=== PATIENT | female | born 1990 | race Caucasian/White ===

== ENCOUNTER 2016-07-30 11:20 | Emergency (ER) | payer MEDICAID, OTHER ==
[~2016-07-30] VITALS: Ht 157.5 cm; Wt 63.5 kg
[~2016-07-30 11:20] MED LIST: LORTA5 PO
[2016-07-30 11:22] VITALS: BP 123/67; PULSE 68; RESP 12; TEMP 98.4; O2SAT 100
[2016-07-30] MEDS ORDERED: SODIUM CHLORIDE 0.9% FLUSH 5 ML FLUSH IVF PRN (12:00)
[2016-07-30 12:35] LABS: AUTOMATED NEUTROPHIL # 3.7 TH/MM3 (1.8-7.7); BASOPHIL % 0.1 % (0.0-2.0); EOSINOPHIL % 0.4 % (0.0-4.0); HEMO FLAGS DIFF FINAL; LYMPH % 29.5 % (9.0-44.0); LYMPHOCYTE # 1.8 TH/MM3 (1.0-4.8); MEAN CELL VOLUME 83.9 FL (80.0-100.0); MEAN CORPUSCULAR HEMOGLOBIN 28.9 PG (27.0-34.0); MEAN CORPUSCULAR HGB CONC 34.4 % (32.0-36.0); MONO % 9.4 % (0.0-8.0); NEUT % 60.6 % (16.0-70.0); PLATELET COUNT 211 TH/MM3 (150-450); RED BLOOD COUNT 4.41 MIL/MM3 (4.00-5.30); WHITE BLOOD COUNT 6.1 TH/MM3 (4.0-11.0)
[2016-07-30 12:42] LABS: BACTERIA, URINE RARE /hpf; BLOOD, URINE NEG (NEG); GLUCOSE,URINE NEG (NEG); KETONE, URINE NEG (NEG); MUCUS URINE FEW /lpf (OCC); NITRITE,URINE NEG (NEG); SQUAMOUS EPITHELIAL CELL URINE 9 /hpf (0-5); URINE COLOR YELLOW (YELLW/STRAW)
[2016-07-30 12:44] LABS: COMMENT (UR) CULT NOT INDICATED; CULTURE IF INDICATED CULT NOT INDICATED
[2016-07-30 12:49] LABS: BICARBONATE 25.6 MEQ/L (21.0-32.0); POTASSIUM 3.4 MEQ/L (3.5-5.1)
--- NOTE | 2016-07-30 12:50 | PD ---
HPI Chief Complaint: Related Problem Time Seen by Provider: 11:50 Travel History International Travel<30 days: No Contact w/Intl Traveler<30days: No Traveled to known affect area: No History of Present Illness HPI Patient is a 25-year-old female who presents emergency Department due to vaginal discharge and pelvic pain. Patient states that she is approximately 7 weeks . She states the pain is been ongoing for approximately 2 weeks she also has pain in her right lower back. She states the pain comes and goes at its worse at 7 out of 10. She notices the pain more so during the day when she is active. She denies any vaginal bleeding, she denies any fevers, chills, nausea, vomiting, diarrhea, chest pain, shortness of breath. PFSH Past Medical History Medical History: Denies Significant Hx Diminished Hearing: No ?: LMP: 6-7 weeks : 5 Para: 4 Miscarriage: 1 Past Surgical History Surgical History: No Previous Surgery Social History Alcohol Use: No Tobacco Use: No Substance Use: No Allergies-Medications (Allergen,Severity, Reaction): Coded Allergies: No Known Allergies (Unverified , 07/30/16) Reported Meds & Prescriptions Reported Meds & Active Scripts Active No Active Prescriptions or Reported Medications Review of Systems Except as stated in HPI: all other systems reviewed are Neg Cardiovascular: No: Chest Pain or Discomfort Respiratory: No: Shortness of Breath Gastrointestinal: No: Nausea, Vomiting, Abdominal Pain Genitourinary: Positive: Pelvic Pain, Discharge, No: Dysuria, Vaginal Bleeding Neurologic: No: Dizziness Physical Exam Narrative GENERAL: Well-developed, well-nourished, alert female. Resting comfortably in no acute distress. SKIN: Warm and dry. HEAD: Atraumatic. Normocephalic. EYES: Pupils equal and round. No scleral icterus. No injection or drainage. ENT: No nasal bleeding or discharge. Mucous membranes pink and moist. NECK: Trachea midline. No JVD. CARDIOVASCULAR: Regular rate and rhythm. No murmur appreciated. RESPIRATORY: No accessory muscle use. Clear to auscultation. Breath sounds equal bilaterally. GASTROINTESTINAL: Abdomen soft, mildly tender to palpation in suprapubic region , no rebound, no guarding, nondistended. Hepatic and splenic margins not palpable. Positive bowel sounds. GENITOURINARY: No dysuria, no frequency, vaginal discharge or bleeding. Cervical os is closed with no evidence of bleeding. MUSCULOSKELETAL: No obvious deformities. No clubbing. No cyanosis. No edema. NEUROLOGICAL: Awake and alert. No obvious cranial nerve deficits. Motor grossly within normal limits. Normal speech. PSYCHIATRIC: Appropriate mood and affect; insight and judgment normal. Data Data Last Documented VS Vital Signs Date Time Temp Pulse Resp B/P Pulse Ox O2 Delivery O2 Flow Rate FiO2 07/30/16 11:34 68 14 07/30/16 11:22 98.4 123/67 100 Room Air Orders Gc And Chlamydia Pcr (07/30/16 11:46) Complete Rh (07/30/16 11:46) Wet Prep Profile (07/30/16 11:46) Urinalysis - C+S If Indicated (07/30/16 11:46) Iv Access Insert/Monitor (07/30/16 11:46) Sodium Chloride 0.9% Flush (Ns Flush) (07/30/16 12:00) Complete Blood Count With Diff (07/30/16 11:57) Lipase (07/30/16 11:57) Basic Metabolic Panel (Bmp) (07/30/16 11:57) Beta Hcg (Quant/Titer) (07/30/16 12:15) Potassium Chloride (Kcl) (07/30/16 13:30) Us Pelvis (Ques Preg/Ectopic) (07/30/16 ) Labs Laboratory Tests Test 07/30/16 12:15 White Blood Count 6.1 TH/MM3 Red Blood Count 4.41 MIL/MM3 Hemoglobin 12.7 GM/DL Hematocrit 37.0 % Mean Corpuscular Volume 83.9 FL Mean Corpuscular Hemoglobin 28.9 PG Mean Corpuscular Hemoglobin 34.4 % Concent Red Cell Distribution Width 13.0 % Platelet Count 211 TH/MM3 Mean Platelet Volume 8.7 FL Neutrophils (%) (Auto) 60.6 % Lymphocytes (%) (Auto) 29.5 % Monocytes (%) (Auto) 9.4 % Eosinophils (%) (Auto) 0.4 % Basophils (%) (Auto) 0.1 % Neutrophils # (Auto) 3.7 TH/MM3 Lymphocytes # (Auto) 1.8 TH/MM3 Monocytes # (Auto) 0.6 TH/MM3 Eosinophils # (Auto) 0.0 TH/MM3 Basophils # (Auto) 0.0 TH/MM3 CBC Comment DIFF FINAL Differential Comment Urine Color YELLOW Urine Turbidity HAZY Urine pH 6.0 Urine Specific [place] 1.012 Urine Protein NEG mg/dL Urine Glucose (UA) NEG mg/dL Urine Ketones NEG mg/dL Urine Occult Blood NEG Urine Nitrite NEG Urine Bilirubin NEG Urine Urobilinogen LESS THAN 2.0 MG/DL Urine Leukocyte Esterase MOD Urine RBC 1 /hpf Urine WBC 4 /hpf Urine Squamous Epithelial 9 /hpf Cells Urine Amorphous Sediment OCC Urine Bacteria RARE /hpf Urine Mucus FEW /lpf Microscopic Urinalysis Comment CULT NOT INDICATED Clue Cells (Wet Prep) NONE SEEN Vaginal Trichomonas (Wet Prep) NONE SEEN Vaginal Yeast (Wet Prep) NONE SEEN Sodium Level 138 MEQ/L Potassium Level 3.4 MEQ/L Chloride Level 106 MEQ/L Carbon Dioxide Level 25.6 MEQ/L Anion Gap 6 MEQ/L Blood Urea Nitrogen 7 MG/DL Creatinine 0.47 MG/DL Estimat Glomerular Filtration 164 ML/MIN Rate Random Glucose 81 MG/DL Calcium Level 8.9 MG/DL Lipase 118 U/L Human Chorionic Gonadotropin, 53437 MIU/ML Quant Blood Type O POSITIVE Rho(D) Type POSITIVE MDM Medical Decision Making Medical Screen Exam Complete: Yes Emergency Medical Condition: Yes Interpretation(s) Laboratory Tests Test 07/30/16 12:15 White Blood Count 6.1 TH/MM3 Red Blood Count 4.41 MIL/MM3 Hemoglobin 12.7 GM/DL Hematocrit 37.0 % Mean Corpuscular Volume 83.9 FL Mean Corpuscular Hemoglobin 28.9 PG Mean Corpuscular Hemoglobin 34.4 % Concent Red Cell Distribution Width 13.0 % Platelet Count 211 TH/MM3 Mean Platelet Volume 8.7 FL Neutrophils (%) (Auto) 60.6 % Lymphocytes (%) (Auto) 29.5 % Monocytes (%) (Auto) 9.4 % Eosinophils (%) (Auto) 0.4 % Basophils (%) (Auto) 0.1 % Neutrophils # (Auto) 3.7 TH/MM3 Lymphocytes # (Auto) 1.8 TH/MM3 Monocytes # (Auto) 0.6 TH/MM3 Eosinophils # (Auto) 0.0 TH/MM3 Basophils # (Auto) 0.0 TH/MM3 CBC Comment DIFF FINAL Differential Comment Urine Color YELLOW Urine Turbidity HAZY Urine pH 6.0 Urine Specific [place] 1.012 Urine Protein NEG mg/dL Urine Glucose (UA) NEG mg/dL Urine Ketones NEG mg/dL Urine Occult Blood NEG Urine Nitrite NEG Urine Bilirubin NEG Urine Urobilinogen LESS THAN 2.0 MG/DL Urine Leukocyte Esterase MOD Urine RBC 1 /hpf Urine WBC 4 /hpf Urine Squamous Epithelial 9 /hpf Cells Urine Amorphous Sediment OCC Urine Bacteria RARE /hpf Urine Mucus FEW /lpf Microscopic Urinalysis Comment CULT NOT INDICATED Clue Cells (Wet Prep) NONE SEEN Vaginal Trichomonas (Wet Prep) NONE SEEN Vaginal Yeast (Wet Prep) NONE SEEN Sodium Level 138 MEQ/L Potassium Level 3.4 MEQ/L Chloride Level 106 MEQ/L Carbon Dioxide Level 25.6 MEQ/L Anion Gap 6 MEQ/L Blood Urea Nitrogen 7 MG/DL Creatinine 0.47 MG/DL Estimat Glomerular Filtration 164 ML/MIN Rate Random Glucose 81 MG/DL Calcium Level 8.9 MG/DL Lipase 118 U/L Human Chorionic Gonadotropin, 13848 MIU/ML Quant Blood Type O POSITIVE Rho(D) Type POSITIVE Vital Signs Date Time Temp Pulse Resp B/P Pulse Ox O2 Delivery O2 Flow Rate FiO2 07/30/16 11:34 68 14 07/30/16 11:22 98.4 68 12 123/67 100 Room Air Differential Diagnosis UTI versus STI versus pyelonephritis versus PID versus ectopic versus intrauterine versus round ligament pain versus other Narrative Course Patient is a 25-year-old female who presents emergency for evaluation of 2 weeks of intermittent back and suprapubic pain. Bedside ultrasound shows heart tones and what appears to be an intrauterine , pelvic exam was reassuring, there was no blood noted in the vagina, cervical os is closed. Formal ultrasound ordered and pending, labs ordered and pending. CBC, GC chlamydia, trichomoniasis, chemistry, urinalysis are unremarkable. HCG is elevated over 36,000. Pelvic ultrasound pending 1430 -patient was observed walking out of the emergency department, stating that she did not have time to wait and that we were taking too long. Patient did the same thing in an ER in [place] recently he patient was advised of the labs that we have resulted thus far, she was advised that she is leaving AGAINST MEDICAL ADVICE because we still had the pelvic ultrasound pending at that time. Patient was advised that it is an ectopic on the ultrasound that she would be called back. She was advised to return to emergency department for any new or worsening symptoms. AMA: The risks of leaving against medical advice without further evaluation treatment were discussed with the patient. These risks include cardiac dysfunction, cardiac dysrhythmia, possible heart attack, possible stroke or . The patient indicated understanding of these risks and appeared to have the capacity to make this decision. 1435 pelvic ultrasound shows a live intrauterine measuring 7 weeks 3 days, with heart tones at 145. This resulted minutes after patient left the ER. Scripts No Active Prescriptions or Reported Meds Disposition: 07 AGAINST MEDICAL ADVICE Terra Singh Jul 30, 2016 12:50
[2016-07-30] MEDS ORDERED: POTASSIUM CHLORIDE 20 MEQ CONTROLLED RELEASE TAB PO ONE (13:30)
--- NOTE | 2016-07-30 14:33 | RADRPT ---
EXAM DATE/TIME: 07/30/2016 13:29 [facility] COMPARISON: No previous studies available for comparison. INDICATIONS : Right pelvic pain. LAB(S): Beta-hC MEDICAL HISTORY : . Ovarian cysts. SURGICAL HISTORY : None. ENCOUNTER: Initial ACUITY: 2 weeks PAIN SCORE: 5/10 LOCATION: Right pelvis MEASUREMENTS: UTERUS: 10.8 x 5.6 x 7.4 cm ENDOMETRIAL STRIPE: 16 mm RIGHT OVARY: 4.8 x 1.4 x 3.5 cm LEFT OVARY: 3.3 x 1.3 x 3.0 cm FINDINGS: UTERUS: The uterus is normal in size and morphology and there is a single intrauterine identified w ith a well developed decidual reaction. The crown-rump length measures 1.3 cm consistent with a 7 wee k and 3 day . heart rate is noted at 145 beats per minute. There is a small subchorion ic hemorrhage noted. RIGHT OVARY: The ovary is normal in size, shape and echogenicity with a normal-appearing corpus luteum identified. LEFT OVARY: A left ovary is normal in size, shape and echogenicity with normal vascularity and small follicles. MISCELLANEOUS: There is a small amount of free fluid identified within the posterior cul-de-sac. CONCLUSION: Single live intrauterine gestation with crown-rump length measurement consistent with a 7 week and 3 day . There is a small subchorionic hemorrhage present. There is a normal-appearing corpus l uteum identified within the right ovary. Maday Bergman MD on July 30, 2016 at 14:27 Board Certified Radiologist. This report was verified electronically.
[2016-07-30 16:12] LABS: CHLAMYDIA PCR NOT DETECTED (NOT DETECT); NEISSERIA PCR NOT DETECTED (NOT DETECT)
== END 2016-07-30 14:35 | disposition left against medical advice (07) ==
LOC: NEPE 11:20
DX: O26.891 Other specified pregnancy related conditions, first trimester (principal); R10.2 Pelvic and perineal pain; Z3A.01 Less than 8 weeks gestation of pregnancy
CPT/HCPCS: 76700; 80048; 81001; 83690; 84702; 85025; 86901; 87210; 87491; 87591